=== PATIENT | female | born 1960 | race African-American/Black ===

== ENCOUNTER 2020-12-30 21:30 | Emergency (ER) | payer MEDICAID ==
[~2020-12-30] VITALS: Ht 149.9 cm; Wt 64.0 kg
[2020-12-30 22:05] LABS: CLARITY URINE CLEAR (CLEAR); COLOR URINE DARK YELLOW (YELLOW); KETONES URINE 2+ (NEGATIVE); LEUKOCYTE ESTERASE URINE TRACE (NEGATIVE); NITRITE URINE NEGATIVE (NEGATIVE); OCCULT BLOOD URINE 1+ (NEGATIVE); PROTEIN URINE 2+ (NEGATIVE); SPECIFIC GRAVITY URINE 1.021 (1.005-1.030)
[2020-12-31 00:12] LABS: BASOPHILS % 0.8 % (0.0-2.0); EOSINOPHILS % 0.3 % (0.0-5.0); HEMATOCRIT. 40.2 % (36.0-48.0); HEMOGLOBIN. 14.2 g/dL (12.0-16.0); MEAN PLATELET VOLUME 7.7 fl (7.4-10.4); MONOCYTES % 7.6 % (2.0-8.0); NEUTROPHILS % 64.3 % (40.0-76.0); PLATELET 274 x1000/uL (130-400); RED BLOOD CELL COUNT 4.06 mill/uL (4.2-5.4); RED CELL DISTRIBUTION WIDTH 12.8 % (11.6-14.6)
[2020-12-31 00:13] LABS: CHLORIDE 102 mEq/L (98-107)
[2020-12-31 00:17] LABS: INR 1.1; PROTHROMBIN TIME 11.6 sec (9.6-11.0)
[2020-12-31] MEDS ORDERED: MAGNESIUM/ALUMINUM HYDROXIDE/SIMETHICONE 30ML UDC PO STA (01:48)
[2020-12-31] MEDS ORDERED: IOHEXOL-300 100 ML BOTTLE ONE (02:28)
[2020-12-31] MEDS ORDERED: METRONIDAZOLE 500 MG PREMIX 100 ML IV SCH (03:15)
[2020-12-31] MEDS ORDERED: CIPR500S3 PO (03:21)
[2020-12-31] MEDS ORDERED: METR-167 MT (03:21)
[2020-12-31 04:12] VITALS: BP 156/78
== END 2020-12-31 04:14 | disposition home or self-care (01) ==
LOC: ER 21:30
DX: K57.92 Diverticulitis of intestine, part unspecified, without perforation or abscess without bleeding (principal)
CPT/HCPCS: 36415; 74177; 76705; 80053; 81003; 83690; 84484; 85025; 85610; 93005; 96365; 99285; J3490; Q9967; 96360